=== PATIENT | female | born 1945 | race Asian ===

== ENCOUNTER 2017-06-19 13:17 | Emergency (ER) | payer OTHER ==
[2017-06-19] MEDS ORDERED: NS 1,000 ML IV ONE ×2 (13:30→14:22)
[2017-06-19] MEDS ORDERED: ONDANSETRON 4 MG/2 ML VIAL IVP ONE (13:30)
--- NOTE | 2017-06-19 13:54 | EDPHY ---
H & P Time Seen by Provider: 06/19/17 13:53 HPI/ROS: Chief complaint. Vomiting HPI. Patient is a 72-year-old female visiting from [facility]. She and her arrived 1 month ago to visit their son. [place] during their visit so far. Last night the patient complained to her son of decreased appetite and decreased energy. She had vomiting this morning. No diarrhea. With the vomiting she had some crampy abdominal pain but does not have any pain now. In the remote past she had peptic ulcer disease and she has had C-sections but otherwise no continuing abdominal problems. Denies chest pain, shortness of breath, fever. No blood in emesis ROS Constitutional. no fever/chills, no weakness Eyes. no problems with vision ENT. no sore throat, no nasal drainage Cardiovascular. no chest pain Respiratory. no shortness of breath, no cough Abdominal. Vomiting . no problems urinating MS. no calf pain/swelling, no neck/back pain, no joint pain Skin. no rash Lymph. no swollen glands Neuro. no headache, no dizziness, no difficulty walking or with speech Past Medical/Surgical History: Peptic ulcer disease, Social History: , nonsmoker, no alcohol. Visiting from [place] Smoking Status: Never smoked Physical Exam: General Appearance: Alert pleasant well-developed female mild distress vital signs are stable Eyes: Pupils equal and round no pallor or injection. ENT, mucous members are dry. Pharynx without injection Respiratory: There are no retractions, lungs are clear to auscultation. Cardiovascular: Regular rate and rhythm. Gastrointestinal: Abdomen is soft and nontender, no masses, bowel sounds normal. Neurological: Awake and alert, sensory and motor exams grossly normal. Skin: Warm and dry, no rashes. Musculoskeletal: Neck is supple nontender. Extremities symmetrical, full range of motion. Psychiatric: Patient is oriented X 3, there is no agitation. Constitutional: Initial Vital Signs Temperature (C) 37.6 C 06/19/17 13:24 Heart Rate 80 06/19/17 13:24 Respiratory Rate 16 06/19/17 13:24 Blood Pressure 132/66 H 06/19/17 13:24 O2 Sat (%) 93 06/19/17 13:24 O2 Delivery Mode Room Air Allergies/Adverse Reactions: No Known Allergies Allergy (Unverified 06/19/17 13:30) Home Medications: Medication Instructions Recorded Ondansetron Odt [Zofran Odt] 4 mg PO Q4PRN PRN #7 tab 06/19/17 Vitamin and Minerals 06/19/17 Medical Decision Making Procedures: IV normal saline. Zofran for nausea and vomiting ED Course/Re-evaluation: Re-evaluation at 2:25 p.m.. Patient is stable. She has finished 1 bag of saline but has no urge to urinate. She is taking ice chips without nausea or vomiting. The patient and her son and I discussed laboratory evaluation and dehydration. We discussed treatment plan including criteria for return importance of follow- up further evaluation. They expressed understanding and agreement Differential Diagnosis: Likely this is gastroenteritis type illness. Vomiting with evidence of dehydration. I considered electrolyte abnormality is Wells pancreatitis. No evidence for acute surgical abdomen - Data Points Laboratory Results: Laboratory Results 06/19/17 13:40 06/19/17 13:40 Sodium 140 mEq/L mEq/L (134-144) Potassium 4.0 mEq/L mEq/L (3.5-5.2) Chloride 101 mEq/L mEq/L (97-110) Carbon Dioxide 22 mEq/l mEq/l (22-31) Anion Gap 17 mEq/L H mEq/L (8-16) BUN 16 mg/dL mg/dL (7-23) Creatinine 0.8 mg/dL mg/dL (0.6-1.0) Estimated GFR > 60 Glucose 132 mg/dL H mg/dL (70-100) Calcium 9.1 mg/dL mg/dL (8.5-10.4) Lipase 90 IU/L IU/L (23-300) Medications Given: Discontinued Medications Sodium Chloride (Ns) 1,000 mls @ 0 mls/hr IV ONCE ONE PRN Reason: Wide Open Stop: 06/19/17 13:31 Last Admin: 06/19/17 13:35 Dose: 1,000 mls Ondansetron HCl (Zofran) 4 mg IVP EDNOW ONE Stop: 06/19/17 13:31 Last Admin: 06/19/17 13:35 Dose: 4 mg Departure - Departure Disposition: Home, Routine, Self-Care Clinical Impression: Dehydration Vomiting Qualifiers: Vomiting type: unspecified Vomiting Intractability: non-intractable Nausea presence: with nausea Qualified Code(s): R11.2 - Nausea with vomiting, unspecified Condition: Good Instructions: Acute Nausea and Vomiting (ED) Additional Instructions: Frequent, small sips fluids. Gradual diet advancement. Zofran using 1 pill every 4 hr if needed for nausea and vomiting. Return for worsening symptoms. Recheck in the ER in 1 day if not continuing to improve Referrals: Liam Jiang DO [Doctor of Osteopathy] - 2-3 days, if not improved Prescriptions: Ondansetron Odt [Zofran Odt] 4 mg PO Q4PRN PRN #7 tab PRN Reason: Nausea/Vomiting, Use 1st
[2017-06-19 16:23] VITALS: BP 102/50; PULSE 78; RESP 18; TEMP 99.3; O2SAT 97
== END 2017-06-19 16:19 | disposition home or self-care (01) ==
LOC: CED 13:17
DX: E86.0 Dehydration (principal); R11.10 Vomiting, unspecified
CPT/HCPCS: 80048-PO; 83690-PO; 96374; J2405